=== PATIENT | female | born 1945 | race Caucasian/White ===

== ENCOUNTER → 2016-06-24 | Outpatient (CLI) | payer BC ==
[~2016-06-24] MED LIST: ACET-1256 PO; AZAT50TA17 PO; PRED10TA PO
--- NOTE | 2016-06-24 16:28 | DIAGNOSTIC IMAGING REPORT ---
RIGHT KNEE 4 OR MORE CLINICAL HISTORY: RIGHT KNEE PAIN/OSTEOARTHRITIS Right COMPARISON STUDY: Bilateral knees 11/07/2015. FINDINGS: AP weightbearing of the bilateral knees and lateral, tunnel, and sunrise views of the right knee were submitted. There is chondrocalcinosis within the right knee. Severe cartilage space narrowing at the lateral compartment with [id number] articulation and subchondral sclerosis. This is similar to the prior study. There are large tricompartmental osteophytes. The bones are osteopenic. No acute fracture or dislocation. Trace knee effusion. There is also severe cartilage space narrowing at the lateral compartment of the left knee and moderate cartilage space narrowing at the medial compartment. There is mild cartilage space narrowing at the medial compartment of the right knee IMPRESSION: Bilateral knee osteoarthritis most severe at the lateral compartments as described above. This is similar to the prior study. Chondrocalcinosis. Trace right knee effusion. Electronically signed by: Ernesto Barrera M.D. 06/24/2016 4:26 PM Dictated Date/Time: 06/24/2016 4:23 PM
== END | disposition home or self-care (01) ==
LOC: C.RDSM 15:41
PROVIDERS: ATTEND Physical Medicine & Rehabilitation Sports Medicine
DX: M17.0 Bilateral primary osteoarthritis of knee (principal); M11.261 Other chondrocalcinosis, right knee

== ENCOUNTER → 2017-01-26 | Outpatient (CLI) | payer BC ==
--- NOTE | 2017-01-26 10:06 | DIAGNOSTIC IMAGING REPORT ---
RIGHT WRIST 3 VIEWS CLINICAL HISTORY: Right wrist pain. Healing fracture. FINDINGS: 3 views of the right wrist are compared to study dated 11/27/2016. The skeletal structures are osteopenic. There is a healing impacted fracture of the distal radial metaphysis. Alignment has improved from the prior examination. Overlying soft tissue edema persists. No additional fracture is seen. Mild arthritic change is present at the radiocarpal and intercarpal joints. IMPRESSION: There is a healing impacted fracture of the distal radial metaphysis with persistent overlying soft tissue edema. Electronically signed by: Mook Diaz M.D. 01/26/2017 10:05 AM Dictated Date/Time: 01/26/2017 10:02 AM
--- NOTE | 2017-01-26 10:33 | DIAGNOSTIC IMAGING REPORT ---
RIGHT HAND MIN 3 VIEWS CLINICAL HISTORY: Right hand pain COMPARISON: Outside radiograph of the wrist dated 11/27/2016 DISCUSSION: The bones are osteopenic. There is a healing transverse fracture of the distal radial metaphysis with suspected intra-articular extension. No fractures of the hand are visualized. There are no dislocations. There are osteoarthritic changes most pronounced involving the distal to phalangeal joint. IMPRESSION: 1. Osteopenia and degenerative change 2. Healing distal radial fracture Electronically signed by: Leonid Genao M.D. 01/26/2017 10:31 AM Dictated Date/Time: 01/26/2017 10:30 AM
== END | disposition home or self-care (01) ==
LOC: C.RDSM 14:41
PROVIDERS: ATTEND Physician Assistant
DX: M25.531 Pain in right wrist (principal); M79.641 Pain in right hand; S52.591A Other fractures of lower end of right radius, initial encounter for closed fracture; X58.XXXA Exposure to other specified factors, initial encounter; M85.841 Other specified disorders of bone density and structure, right hand

== ENCOUNTER → 2017-02-11 | Outpatient (CLI) | payer BC ==
--- NOTE | 2017-02-11 11:48 | DIAGNOSTIC IMAGING REPORT ---
RIGHT WRIST MIN 3 VIEWS ROUTINE CLINICAL HISTORY: Right wrist pain. Healing fracture. COMPARISON: Right wrist radiographs January 26, 2017. FINDINGS: There has been no change in alignment of the mildly displaced impacted distal right radial metaphyseal fracture since exam of January 26, 2017. Partial interval healing is noted. No additional fractures are identified on this examination. IMPRESSION: Partial interval healing of the mildly displaced distal right radial fracture with no change in alignment since prior study of January 26, 2017. Electronically signed by: Mayito Foster M.D. 02/11/2017 11:47 AM Dictated Date/Time: 02/11/2017 11:45 AM
== END | disposition home or self-care (01) ==
LOC: C.RDSM 11:15
PROVIDERS: ATTEND Physician Assistant
DX: S52.591A Other fractures of lower end of right radius, initial encounter for closed fracture (principal); X58.XXXA Exposure to other specified factors, initial encounter

== ENCOUNTER 2017-03-03 18:10 | Emergency (ER) | payer BC ==
[~2017-03-03] VITALS: Ht 152.4 cm; Wt 53.7 kg
[~2017-03-03 18:10] MED LIST changes: -ACET-1256 PO
[2017-03-03 18:16] VITALS: TEMP 36.6; Ht 152.4 cm; Wt 53.7 kg
[2017-03-03] MEDS ORDERED: MoRPHine SULFATE 4 MG/ML 1 ML CARP\\VIAL IV STA (18:30)
[2017-03-03] MEDS ORDERED: ACETAMINOPHEN 325 MG TAB PO STA (18:30)
[2017-03-03] MEDS ORDERED: SODIUM CHLORIDE 0.9% 500ML 500 ML IV STA (18:30)
--- NOTE | 2017-03-03 18:54 | EMERGENCY ROOM VISIT NOTE ---
History Report prepared by Anton: Moisés Villa Under the Supervision of: Dr. Marco A Soria M.D. 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 She rates her discomfort as a 10/10 in severity. The patient states that she was carrying a box down the stairs and missed a step. She reports that she fell down six steps and hit the back of her head. The patient denies any LOC and reports that she remembers the whole thing. She states that following the fall she started to experience a headache, right upper back pain, and left wrist pain. The patient states that she is unsure if she takes blood thinners. She reports that she is right handed. The patient admits to an allergy to Penicillin and Ibuprofen. She reports that when she takes Ibuprofen, her face swells. Positive headache, right upper back pain, left wrist pain. Negative LOC. 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 A total of ten systems were reviewed and were otherwise negative. Past Medical & Surgical Medical Problems: (1) Aneurysm Family History Patient reports no known family medical history. Social History Smoking Status: Never Smoker Occupation Status: retired Current/Historical Medications Scheduled Azathioprine (Imuran), 50 MG PO DAILY Scheduled PRN Acetaminophen (Tylenol), 500-1,000 MG PO DIRECTED PRN for Pain or Fever Allergies Coded Allergies: Ibuprofen (Verified Allergy, Unknown, UNKNOWN, 03/03/17) Penicillins (Verified Allergy, Unknown, UNKNOWN, 03/03/17) Physical Exam Vital Signs Date Time Temp Pulse Resp B/P (MAP) Pulse Ox O2 Delivery O2 Flow Rate FiO2 03/03/17 21:39 98 22 135/87 98 03/03/17 20:57 104 22 144/75 98 Room Air 03/03/17 20:20 104 03/03/17 20:00 104 20 139/84 97 Room Air 03/03/17 19:20 106 20 136/83 97 Room Air 03/03/17 18:16 36.6 107 20 135/81 98 Room Air Physical Exam GENERAL: Awake, alert, well-appearing, NAD HENT: Laceration to occipital area, currently hemostatic. EYES: Normal conjunctiva. Sclera non-icteric. NECK: Supple. No nuchal rigidity. FROM. RESPIRATORY: CTAB, no rhonchi, wheezing, crackles CARDIAC: RRR, no MRG ABDOMEN: Soft, NTND, BS+ MSK: No chest wall TTP, no LE edema. No midline C-spine tenderness or paraspinal tenderness. Mild right scapular tenderness, no bruising. NEURO: GCS 15, CN 2-12 intact, moves all 4s on command neural sensation intact distally.no dysarthria. Symmetric strength in bilateral UE/LE. M/U/R nerves. SKIN: No rash or jaundice noted. Ecchymosis and hematoma noted to dorsal aspect of left wrist. Medical Decision & Procedures ER Provider Diagnostic Interpretation: Radiology results as stated below per my review and radiologist interpretation: HEAD WITHOUT CONTRAST (CT) CLINICAL HISTORY: 71 years-old Female presenting with s/p fall, occipital lac, down several stairs. TECHNIQUE: Multidetector CT imaging of the head was performed without the use of intravenous contrast. IV contrast: None. A dose lowering technique was used consistent with the principles of ALARA (as low as reasonably achievable). COMPARISON: 03/18/2015. CT DOSE (mGy.cm): The estimated cumulative dose is 931.08. FINDINGS: Phytopathology Teacher topogram: Aneurysm clip noted. Acute subarachnoid hemorrhage in the right sylvian fissure along the course of the right middle cerebral artery. Aneurysm clip noted in the region of the right internal carotid artery terminus. Hyperdensity along the right tentorium suggests subdural hematoma. Additional acute subdural hematoma along the right frontal convexity with mild underlying mass effect. This measures 7 mm in maximal thickness. Additional acute subarachnoid hemorrhage noted in the anterior pole of the left temporal lobe with small adjacent acute subdural hematoma. Hyperdense focus in the left basal ganglia likely age-related calcification. No parenchymal hypodensity to suggest contusion. Postsurgical changes of right frontal craniotomy. No acute calvarial fracture. Paranasal sinuses and mastoid air cells clear. The superficial soft tissues are remarkable for an acute subgaleal hematoma along the right vertex. Foci of gas likely suggest laceration in this region. IMPRESSION: 1. Acute subdural hematoma and acute subarachnoid hemorrhage along the right frontal region with mild subjacent mass effect. 2. Acute subdural hematoma and acute subarachnoid hemorrhage along the anterior pole of the left temporal lobe. 3. Acute subdural hematoma along the right tentorium. 4. Acute subgaleal hematoma along the right vertex likely with associated laceration. 5. Postsurgical changes with aneurysm clip in the region of the right ICA terminus, unchanged. The report will be called/faxed according to standard departmental protocol. Electronically signed by: Renzo Gage M.D. 03/03/2017 7:56 PM Dictated Date/Time: 03/03/2017 7:[address] OF THE CERVICAL SPINE CLINICAL HISTORY: Neck pain status post trauma. Fall down stairs. COMPARISON STUDY: No previous studies for comparison. CT DOSE: 931.08 mGy.cm TECHNIQUE: CT scan of the cervical spine was performed from the skull base to the thoracic inlet. Images are reviewed in the axial, sagittal, and coronal planes. IV contrast was not administered for this examination. A dose lowering technique was utilized adhering to the principles of ALARA. FINDINGS: There is a multinodular thyroid gland including a 13 mm right lobe thyroid nodule. No pneumothorax is visualized. The prevertebral soft tissues are normal. No fractures or subluxations are visualized. There is mild basilar invagination. 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 IMPRESSION: 1. No acute fractures or traumatic subluxations 2. Mild basilar invagination 3. Multinodular thyroid gland. Electronically signed by: Leonid Genao M.D. 03/03/2017 8:00 PM Dictated Date/Time: 03/03/2017 7:54 PM Laboratory Results 03/03/17 19:06 Red Blood Count 4.71, Mean Corpuscular Volume 84.1, Mean Corpuscular Hemoglobin 28.5, Mean Corpuscular Hemoglobin Concent 33.8, Mean Platelet Volume 10.0, Neutrophils (%) (Auto) 76.5, Lymphocytes (%) (Auto) 13.5, Monocytes (%) (Auto) 7.2, Eosinophils (%) (Auto) 2.2, Basophils (%) (Auto) 0.2, Neutrophils # (Auto) 9.21, Lymphocytes # (Auto) 1.62, Monocytes # (Auto) 0.87, Eosinophils # (Auto) 0.27, Basophils # (Auto) 0.02 03/03/17 19:06 Test 03/03/17 19:06 White Blood Count 12.04 K/uL (4.8-10.8) Red Blood Count 4.71 M/uL (4.2-5.4) Hemoglobin 13.4 g/dL (12.0-16.0) Hematocrit 39.6 % (37-47) Mean Corpuscular Volume 84.1 fL (80-100) Mean Corpuscular Hemoglobin 28.5 pg (25-34) Mean Corpuscular Hemoglobin Concent 33.8 g/dl (32-36) Platelet Count 222 K/uL (130-400) Mean Platelet Volume 10.0 fL (7.4-10.4) Neutrophils (%) (Auto) 76.5 % Lymphocytes (%) (Auto) 13.5 % Monocytes (%) (Auto) 7.2 % Eosinophils (%) (Auto) 2.2 % Basophils (%) (Auto) 0.2 % Neutrophils # (Auto) 9.21 K/uL (1.4-6.5) Lymphocytes # (Auto) 1.62 K/uL (1.2-3.4) Monocytes # (Auto) 0.87 K/uL (0.11-0.59) Eosinophils # (Auto) 0.27 K/uL (0-0.5) Basophils # (Auto) 0.02 K/uL (0-0.2) RDW Standard Deviation 43.6 fL (36.4-46.3) RDW Coefficient of Variation 14.0 % (11.5-14.5) Immature Granulocyte % (Auto) 0.4 % Immature Granulocyte # (Auto) 0.05 K/uL (0.00-0.02) Prothrombin Time 11.5 SECONDS (9.0-12.0) Prothromb Time International Ratio 1.1 (0.9-1.1) Activated Partial Thromboplast Time 23.4 SECONDS (21.0-31.0) Partial Thromboplastin Ratio 0.9 Anion Gap 8.0 mmol/L (3-11) Est Creatinine Clear Calc Drug Dose 51.4 ml/min Estimated GFR () 99.6 Estimated GFR (Non- 86.0 BUN/Creatinine Ratio 34.8 (10-20) Calcium Level 9.0 mg/dl (8.5-10.1) Laboratory results reviewed by me Medications Administered Medications (Trade) Dose Ordered Sig/Jag Route Start Time Stop Time Status Last Admin Dose Admin Sodium Chloride 500 ml @ 500 mls/hr Q1H STAT IV 03/03/17 18:30 03/03/17 19:29 DC 03/03/17 19:16 500 MLS/HR Morphine Sulfate (MoRPHine SULFATE INJ) 4 mg NOW STAT IV 03/03/17 18:30 03/03/17 18:33 DC 03/03/17 19:15 4 MG Acetaminophen (Tylenol Tab) 650 mg NOW STAT PO 03/03/17 18:30 03/03/17 18:33 DC 03/03/17 19:15 650 MG Diphtheria/ Pertussis/Tetanus Vacc (Adacel Inj) 0.5 ml ONCE ONCE IM. 03/03/17 19:00 03/03/17 19:01 DC 03/03/17 19:16 0.5 ML Levetiracetam 1000 mg/Dextrose 110 ml @ 440 mls/hr ONE ONCE IV 03/03/17 20:15 03/03/17 20:29 DC 03/03/17 20:57 440 MLS/HR Ondansetron HCl (Zofran Inj) 4 mg NOW STAT IV 03/03/17 20:13 03/03/17 20:14 DC 03/03/17 20:13 4 MG Ondansetron HCl (Zofran Inj) 4 mg NOW STAT IV 03/03/17 21:22 03/03/17 21:23 DC 03/03/17 21:22 4 MG ECG Indication: other (fall) Rate (beats per minute): 104 Rhythm: sinus tachycardia Findings: Q waves (Anterior in V1 and V2), other (Normal intervals. No other ST changes or TWI.) ED Course 1823: The patient was evaluated in room C12B. A complete history and physical exam was performed. 2025: I discussed the patient's case with Dr. Rodríguez, [facility] , and Dr. Hitchcock, [facility]. They understand the patient's condition and agree to accept the patient. The patient will be further evaluated. Medical Decision The differential diagnosis includes etiologies such as: ICH, sprain,strain laceration, and fracture. 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 Patient was seen and evaluated at the bedside. Patient was noted to be 18 or 3 with a GCS of 15. Patient suffered a mechanical fall and did have a posterior occipital laceration. Patient had no neurologic deficits pupils are equally round and reactive to light. Patient was further evaluated with blood work EKG CT as well as plain films. Patient was noted to have multiple subdural and subarachnoid hemorrhages. CT cervical spine negative. Patient did not take any blood thinning medications. Patient had normal platelets and hemoglobin. Patient was not coagulopathic. Upon reassessment patient was having some vomiting and was complaining of some headache but did not have a change in her GCS which remained to be 15. Patient was mildly repetitive questioning occasionally as she was trying to understand why she would have to be transferred. Patient was given Keppra for seizure prophylaxis. Head of the bed was elevated. Patient did not have an elevated systolic greater than 140s and no antihypertensives were initiated at time of transfer. I did speak with neurosurgery as well as emergency medicine physicians at [facility]. They agreed to accept transfer. Life flight arrived and the patient was transferred. Medication Reconcilliation Current Medication List: was personally reviewed by me Blood Pressure Screening Patient's blood pressure: Elevated blood pressure Blood pressure disposition: Referred to PCP Consults Time Called: 2025 Consulting Physician: Dr. Rodríguez, [facility], and Dr. Hitchcock [facility] Returned Call: 2025 I discussed the patient's case with Dr. Rodríguez, [facility], and Dr. Hitchcock, [facility]. They understand the patient's condition and agree to accept the patient. The patient will be further evaluated. Impression Primary Impression: Subdural bleeding Additional Impressions: Subarachnoid hemorrhage Fall Laceration of occipital region of scalp Critical Care I have personally spent greater than 52 minutes of critical care time in the direct management of this patient. This includes bedside care, interpretation of diagnostic studies, and testing, discussion with consultants, patient, and family members, and other required patient management activities. This 52 minutes is in excess of all separately billable procedures. Scribe Attestation The scribe's documentation has been prepared under my direction and personally reviewed by me in its entirety. I confirm that the note above accurately reflects all work, treatment, procedures, and medical decision making performed by me. Departure Information Dispostion Transfer Acute Care Facility Referrals No Doctor, Assigned (PCP) Patient Instructions My [facility] Problem Qualifiers Additional Impressions: Fall Encounter type: initial encounter Qualified Codes: W19.XXXA - Unspecified fall, initial encounter
[2017-03-03] MEDS ORDERED: DIPHTHERIA/TETANUS/PERTUSSIS 0.5 ML SYR/VIAL IM. ONE (19:00)
[2017-03-03 19:19] LABS: BASO % 0.2 %; BASO ABS # 0.02 K/uL (0-0.2); COMPLETE YES; EOS % 2.2 %; HEMATOCRIT 39.6 % (37-47); IG% 0.4 %; LYMPH % 13.5 %; LYMPH ABS # 1.62 K/uL (1.2-3.4); MEAN CELL VOLUME 84.1 fL (80-100); MEAN CORPUSCULAR HEMOGLOBIN 28.5 pg (25-34); MEAN CORPUSCULAR HGB CONC 33.8 g/dl (32-36); MONO % 7.2 %; NEUT % 76.5 %; PLATELET COUNT 222 K/uL (130-400); RED BLOOD COUNT 4.71 M/uL (4.2-5.4); WHITE BLOOD COUNT 12.04 K/uL (4.8-10.8)
[2017-03-03] MEDS ORDERED: ACET-1256 PO (19:27)
[2017-03-03 19:30] LABS: INR 1.1 (0.9-1.1); PARTIAL THROMBOPLASTIN RATIO 0.9; PROTHROMBIN TIME (PATIENT) 11.5 SECONDS (9.0-12.0)
[2017-03-03 19:38] LABS: BUN/CREATININE RATIO 34.8 (10-20); CREATININE 0.7 mg/dl (0.60-1.20)
--- NOTE | 2017-03-03 19:58 | DIAGNOSTIC IMAGING REPORT ---
HEAD WITHOUT CONTRAST (CT) CLINICAL HISTORY: 71 years-old Female presenting with s/p fall, occipital lac, down several stairs. TECHNIQUE: Multidetector CT imaging of the head was performed without the use of intravenous contrast. IV contrast: None. A dose lowering technique was used consistent with the principles of ALARA (as low as reasonably achievable). COMPARISON: 03/18/2015. CT DOSE (mGy.cm): The estimated cumulative dose is 931.08. FINDINGS: Rn Perioperative topogram: Aneurysm clip noted. Acute subarachnoid hemorrhage in the right sylvian fissure along the course of the right middle cerebral artery. Aneurysm clip noted in the region of the right internal carotid artery terminus. Hyperdensity along the right tentorium suggests subdural hematoma. Additional acute subdural hematoma along the right frontal convexity with mild underlying mass effect. This measures 7 mm in maximal thickness. Additional acute subarachnoid hemorrhage noted in the anterior pole of the left temporal lobe with small adjacent acute subdural hematoma. Hyperdense focus in the left basal ganglia likely age-related calcification. No parenchymal hypodensity to suggest contusion. Postsurgical changes of right frontal craniotomy. No acute calvarial fracture. Paranasal sinuses and mastoid air cells clear. The superficial soft tissues are remarkable for an acute subgaleal hematoma along the right vertex. Foci of gas likely suggest laceration in this region. IMPRESSION: 1. Acute subdural hematoma and acute subarachnoid hemorrhage along the right frontal region with mild subjacent mass effect. 2. Acute subdural hematoma and acute subarachnoid hemorrhage along the anterior pole of the left temporal lobe. 3. Acute subdural hematoma along the right tentorium. 4. Acute subgaleal hematoma along the right vertex likely with associated laceration. 5. Postsurgical changes with aneurysm clip in the region of the right ICA terminus, unchanged. The report will be called/faxed according to standard departmental protocol. Electronically signed by: Renzo Gage M.D. 03/03/2017 7:56 PM Dictated Date/Time: 03/03/2017 7:50 PM
--- NOTE | 2017-03-03 20:02 | DIAGNOSTIC IMAGING REPORT ---
CT OF THE CERVICAL SPINE CLINICAL HISTORY: Neck pain status post trauma. Fall down stairs. COMPARISON STUDY: No previous studies for comparison. CT DOSE: 931.08 mGy.cm TECHNIQUE: CT scan of the cervical spine was performed from the skull base to the thoracic inlet. Images are reviewed in the axial, sagittal, and coronal planes. IV contrast was not administered for this examination. A dose lowering technique was utilized adhering to the principles of ALARA. FINDINGS: There is a multinodular thyroid gland including a 13 mm right lobe thyroid nodule. No pneumothorax is visualized. The prevertebral soft tissues are normal. No fractures or subluxations are visualized. There is mild basilar invagination. 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 IMPRESSION: 1. No acute fractures or traumatic subluxations 2. Mild basilar invagination 3. Multinodular thyroid gland. Electronically signed by: Leonid Genao M.D. 03/03/2017 8:00 PM Dictated Date/Time: 03/03/2017 7:54 PM
[2017-03-03] MEDS ORDERED: ONDANSETRON INJ 2 MG/ML 2 ML VIAL IV STA ×2 (20:13→21:22)
[2017-03-03] MEDS ORDERED: LEVETIRACETAM IV 1,000 MG in DEXTROSE 5% 100ML 100 ML IV ONE (20:15)
[2017-03-03] MEDS ORDERED: LIDO/EPINEPHRINE/SOD BICARB 20 ML VIAL INFIL ONE (20:41)
--- NOTE | 2017-03-03 21:06 | EMERGENCY ROOM VISIT NOTE ---
ED Visit Note I was asked by Dr. Soria to repair a scalp laceration. There was a 3 cm slightly macerated and stellate laceration to the posterior scalp. There is moderate bleeding. Using sterile technique the wound was cleaned with Betadine. The area was sterilely draped. 5 ml of 1% buffered lidocaine with epinephrine was used to anesthetize the skin. Once the patient was numb, the wound was copiously irrigated under pressure with sterile saline. The wound was explored and there were no deep structures such as tendons, bone, or ligaments present. The laceration was repaired using 10 wendy with the wound edges being well approximated. There was a small area of maceration that may not hold a staple but the wound edges were approximated and the bleeding stopped. The patient tolerated the procedure well. The bleeding stopped. The area was cleaned with sterile saline and dressed with bacitracin ointment and bandage.
--- NOTE | 2017-03-03 21:26 | DIAGNOSTIC IMAGING REPORT ---
CHEST ONE VIEW PORTABLE CLINICAL HISTORY: 71 years-old Female presenting with R posterior/scap TTP. TECHNIQUE: Portable upright AP view of the chest was obtained. COMPARISON: None. FINDINGS: Cardiomediastinal silhouette normal. Lungs and pleural spaces clear. Osseous structures normal. Upper abdomen normal. IMPRESSION: 1. No acute cardiopulmonary disease. Electronically signed by: Renzo Gage M.D. 03/03/2017 9:25 PM Dictated Date/Time: 03/03/2017 9:24 PM
--- NOTE | 2017-03-03 21:29 | DIAGNOSTIC IMAGING REPORT ---
R SCAPULA CLINICAL HISTORY: 71 years-old Female presenting with scalp TTP. TECHNIQUE: Frontal and lateral views of the right scapula were obtained. COMPARISON: Correlation made to plain radiographs of the left shoulder from 11/16/2011. FINDINGS: Apparent calcific density projecting over the humeral head on frontal view may represent calcific tendinitis. Glenohumeral and acromioclavicular joints grossly congruent. No displaced fracture of the scapula is apparent. Regional soft tissues within normal limits. Right hemithorax normal. IMPRESSION: No radiographic evidence of acute osseous injury of the right scapula. Electronically signed by: Renzo Gage M.D. 03/03/2017 9:28 PM Dictated Date/Time: 03/03/2017 9:25 PM
--- NOTE | 2017-03-03 21:32 | DIAGNOSTIC IMAGING REPORT ---
L WRIST 2 VIEW CLINICAL HISTORY: 71 years-old Female presenting with pain/hematoma/ecchymosis. TECHNIQUE: Frontal, bilateral oblique, and lateral views of the left wrist were obtained. COMPARISON: Comparison made to plain radiographs of the right wrist from 2013. FINDINGS: Osteopenia. Osteophytosis, joint space loss, and sclerosis at the first carpometacarpal articulation. Surrounding ossific densities may relate to heterotopic ossification or fragmented osteophytes. Radiocarpal and intercarpal articulations grossly intact. Allowing for osteopenia, no displaced fracture. No malalignment. IMPRESSION: Extensive degenerative change at the first carpometacarpal articulation with exuberant osteophytosis or heterotopic ossification. No acute osseous injury. Electronically signed by: Renzo Gage M.D. 03/03/2017 9:30 PM Dictated Date/Time: 03/03/2017 9:28 PM
--- NOTE | 2017-03-03 21:38 | DIAGNOSTIC IMAGING REPORT ---
L FOREARM 2 VIEWS ROUTINE CLINICAL HISTORY: 71 years-old Female presenting with pain/hematoma/ecchymosis. TECHNIQUE: Frontal and lateral views of the left forearm were obtained. COMPARISON: None. FINDINGS: Elbow and distal radial ulnar joints grossly congruent. No acute fracture or malalignment. Partially visualized degenerative change at the first carpometacarpal articulation. Regional soft tissues within normal limits. IMPRESSION: No acute osseous injury of the left forearm. Electronically signed by: Renzo Gage M.D. 03/03/2017 9:37 PM Dictated Date/Time: 03/03/2017 9:35 PM
[2017-03-03 21:39] VITALS: BP 135/87; PULSE 98; O2SAT 98
== END 2017-03-03 21:39 | disposition short-term general hospital (02) ==
LOC: EDBD 18:10 → C.EDC 18:11
DX: I62.00 Nontraumatic subdural hemorrhage, unspecified (principal); S06.6X0A Traumatic subarachnoid hemorrhage without loss of consciousness, initial encounter; W10.9XXA Fall (on) (from) unspecified stairs and steps, initial encounter; S01.01XA Laceration without foreign body of scalp, initial encounter; I72.9 Aneurysm of unspecified site; Z23 Encounter for immunization

== ENCOUNTER → 2017-07-07 | Outpatient (CLI) | payer BC ==
[~2017-07-07] MED LIST changes: +ACET-1256 PO; -PRED10TA PO
--- NOTE | 2017-07-07 13:19 | DIAGNOSTIC IMAGING REPORT ---
HEAD WITHOUT CONTRAST (CT) CT DOSE: 709.48 mGy.cm HISTORY: I60.9 Subarachnoid bleed TECHNIQUE: Multiaxial CT images of the head were performed without the use of intravenous contrast. A dose lowering technique was utilized adhering to the principles of ALARA. Comparison: 03/03/2017 Findings: The paranasal sinuses and mastoid air cells are clear. Patient's right-sided craniotomy flap remains stable. The subarachnoid as well as subdural hemorrhage along the right frontal region present described appears to resolve completely. The subdural hematoma along the left anterior temporal lobe region previously described has also resolved. There is perhaps a small amount of post lead encephalomalacia. Postoperative changes in the right suprasellar region are again noted consistent with aneurysm clips. These are unchanged from the prior study. Scattered areas of atrophy as well as chronic small vessel change are noted. All findings are present slightly progressive compared to the prior exam although the hemorrhagic component again has resolved. Impression: 1. No evidence for acute intracranial hemorrhage. 2. All regions of hemorrhage previously described have completely resolved. 3. Slightly progressive atrophy as well as scattered encephalomalacia compared to the prior exam. 4. Stable chronic small vessel change throughout both cerebral hemispheres. The above report was generated using voice recognition software. It may contain grammatical, syntax or spelling errors. Electronically signed by: Nile Bermeo M.D. 07/07/2017 1:17 PM Dictated Date/Time: 07/07/2017 1:13 PM
== END | disposition home or self-care (01) ==
LOC: C.CTS 12:36
PROVIDERS: ATTEND Nurse Practitioner Family
DX: I60.9 Nontraumatic subarachnoid hemorrhage, unspecified (principal)

== ENCOUNTER 2019-12-12 08:01 | Observation (INO) ==
--- NOTE | 2019-11-22 16:16 | PAT Medication Instructions ---
Medication Instructions Date of Service November 22, 2019 Home Medications azathioprine [Imuran] 12.5 mg PO QAM conj estrog-medroxyprogest jaya [Prempro] 0.5 tab PO QAM Take morning of surgery With a small sip of water, OTHERWISE NOTHING TO EAT OR DRINK AFTER MIDNIGHT: azathioprine [Imuran] 12.5 mg PO QAM conj estrog-medroxyprogest jaya [Prempro] 0.5 tab PO QAM Other Notes If you have any questions please call us at [phone] or [phone] or [phone] or [phone]
--- NOTE | 2019-11-22 16:25 | Anesthesiology Consultation ---
Date of Service November 22, 2019 Assessment & Plan (1) Encounter for pre-operative examination: COVID Status: As of PAT assessment, patient denies travel to endemic area, known exposure/sick contacts, or symptoms of COVID19. Preoperative COVID19 testing to be completed prior to surgery. CXR not completed at PAT. Apparently patient waited for > 20 mins at radiology, and when the tech came to get her she had left. Surgeon's office made aware. CXR not needed from anesthesia standpoint. If they do want the CXR they will arrange for patient to come back, and if not will send new order with no CXR. Chart Review Chart Review: Acceptable Risk for Surgery (pending surgeon-ordered PCP clearance (Bruce Ospina) 11/25) and Patient seen in Pre Admission Testing Teaching & Discussion Instructed NPO after midnight before surgery, except medications with 15 cc of water. Medication instructions provided according to the [facility] guidelines. History Surgery Operation Date: 12/12/19 09:20 Proposed Procedures p Right Total Knee Arthroplasty - Geovany Chandler MD Height/Weight Height: 5 ft 1 in Weight: 51.982 kg Allergies Allergy/AdvReac Type Severity Reaction Status Date / Time Penicillins Allergy Severe Anaphylaxis Verified 11/22/19 15:45 ibuprofen Allergy Intermediate SWELLING Verified 11/22/19 15:45 IN FACE tramadol Allergy Mild VOMITTING Verified 11/22/19 15:45 prednisone Allergy Unknown unk Verified 11/22/19 15:45 Opioids - Morphine Analogues AdvReac Intermediate severe n/v Verified 11/22/19 15:45 Medications Home Medications Medication Instructions Recorded Confirmed Last Taken azathioprine [Imuran] 12.5 mg PO QAM 11/16/19 11/22/19 Unknown conj estrog-medroxyprogest jaya 0.5 tab PO QAM 11/16/19 11/22/19 Unknown [Prempro] Past Medical History Medical History Anemia hx r/t autoimmune hepatitis Anxiety well controlled and situational Autoimmune hepatitis ~2012 Dr. Antoine Rowe Brain bleed sent from [facility] to [place] ~2016. no problems currently Hx of aneurysm BRAIN ANEURYSM OVER 30 YEARS AGO, S/P SURGICAL INTERVENTION IN [place] Exercise / Class Metabolic Activity II 4-5 Yardwork/Stairs/Walk up hill Past Family History Family History Sister Colorectal cancer Mother Myocardial infarction Other No family history of adverse response to anesthesia Denies family history of Ovarian cancer Prostate cancer Breast cancer Past Surgical History Surgical History History of 3 sections History of breast biopsy History of colonoscopy History of dilation and curettage History of esophagogastroduodenoscopy pt denies History of liver biopsy ~2012 S/P brain surgery intracranial aneurysm repair with a clip in [place] (1983) S/P wisdom tooth extraction Past Anesthesia History No Hx of Anesthesia Complications and No Family Hx of Anesthesia Complications History of PONV No Hx of PONV and No Hx of Motion Sickness Social History Smoking Status: Never smoker Do You Dip or Chew Tobacco: No Hx Alcohol Use: No Hx Substance Use: No substance use type: does not use Review of Systems Pt denies any recent chest pain, shortness of breath, palpitations, cough, fever or URI. Physical Exam Vital Signs Last Vital Signs Temp 36.8 C 11/22/19 16:00 Pulse 77 11/22/19 16:00 Resp 18 11/22/19 16:00 BP 131/56 L 11/22/19 16:00 Pulse Ox 98 11/22/19 16:00 ENMT Mouth: + dentures (upper partial) and + dental restorations (caps on two bottom tooth); no chipped teeth and no loose teeth Thyromental Distance: > or= 3.5 Finger Breadths (3.5) Mallampati Class: I Neck normal visual inspection; neck extension not limited Respiratory normal respiratory effort Auscultation: lungs clear to auscultation bilaterally Cardiovascular Rate/Rhythm: regular rate and regular rhythm Heart Sounds: no murmur Extremities: no edema Testing Laboratory Results 11/22/19 16:05 11/22/19 16:05 PT 11.6 Seconds (9.0-12.0) 11/22/19 16:05 INR 1.1 (0.9-1.1) 11/22/19 16:05 APTT 27.2 Seconds (21.0-31.0) 11/22/19 16:05 Urine Color Yellow 11/22/19 Unknown Urine Appearance Clear (Clear) 11/22/19 Unknown Urine pH 6.5 (4.5-7.5) 11/22/19 Unknown Ur Specific [place] 1.021 (1.000-1.030) 11/22/19 Unknown Urine Protein Negative (Negative) 11/22/19 Unknown Urine Glucose (UA) Negative (Negative) 11/22/19 Unknown Urine Ketones Negative (Negative) 11/22/19 Unknown Urine Nitrite Positive (Negative) A 11/22/19 Unknown Ur Leukocyte Esterase 1+ (Negative) H 11/22/19 Unknown Urine WBC (Auto) 10-30 /hpf (0-5) H 11/22/19 Unknown Urine RBC (Auto) 0-4 /hpf (0-4) 11/22/19 Unknown U Hyaline Cast (Auto) 0 /lpf (0-5) 11/22/19 Unknown U Epithel Cells (Auto) 10-20 /lpf (0-5) H 11/22/19 Unknown Urine Bacteria (Auto) 4+ (Negative) H 11/22/19 Unknown Blood Type O Positive 11/22/19 16:05 Antibody Screen NEGATIVE 11/22/19 16:05 surgeon's office flagged re: + UA Electrocardiogram Date: 11/22/19 SR @ 75bpm with occasional PVCs, otherwise normal EKG.
[2019-11-22 16:29] LABS: Basophils # (auto) 0.02 K/uL (0-0.2); Basophils % (auto) 0.2 %; Eosinophils % (auto) 2.4 %; Hematocrit (blood only) 43.3 % (37-47); Hemoglobin 14.3 g/dL (12.0-16.0); Immature Granulocytes # (auto) 0.02 K/uL (0.00-0.02); Immature Granulocytes % (auto) 0.2 %; Lymphocytes # (auto) 1.82 K/uL (1.2-3.4); Lymphocytes % (auto) 21.6 %; Mean Corpuscular Hemoglobin 28.4 pg (25-34); Mean Corpuscular Volume 85.9 fL (80-100); Mean Platelet Volume 10.9 fL (7.4-10.4); Monocytes # (auto) 0.61 K/uL (0.11-0.59); Monocytes % (auto) 7.2 %; Neutrophils # (auto) 5.75 K/uL (1.4-6.5); Neutrophils % (auto) 68.4 %; Platelet Count 244 K/uL (130-400); RDW Coefficient of Variation 15.4 % (11.5-14.5); RDW Standard Deviation 48.9 fL (36.4-46.3); Red Blood Count 5.04 M/uL (4.2-5.4); White Blood Count 8.42 K/uL (4.8-10.8)
[2019-11-22 16:35] LABS: Appearance Urine Clear (Clear); Bacteria Urine Automated 4+ (Negative); Bilirubin Urine Negative (Negative); Blood Urine Trace (Negative); Cast Urine Automated 0 /lpf (0-5); Color Urine Yellow; Glucose Urine UA Negative (Negative); Ketones Urine Negative (Negative); Leukocyte Esterase Urine 1+ (Negative); Nitrite Urine Positive (Negative); Protein Urine Negative (Negative); RBC Urine Automated 0-4 /hpf (0-4); Specific Gravity Urine 1.021 (1.000-1.030); Urobilinogen Urine Negative (Negative); pH Urine 6.5 (4.5-7.5)
[2019-11-22 16:36] LABS: BUN Creatinine Ratio 29.4 (10-20); Calcium 9.3 mg/dl (8.5-10.1); Creatinine Clr Calc Pharmacy 57.3 ml/min; Est GFR (Non-African American) 87.1
[2019-11-22 16:39] LABS: INR 1.1 (0.9-1.1); Partial Thromboplastin Time 27.2 Seconds (21.0-31.0); Prothrombin Time 11.6 Seconds (9.0-12.0)
--- NOTE | 2019-11-22 23:39 | Electrocardiogram Report ---
Test Reason : Blood Pressure : / mmHG Vent. Rate : 075 BPM Atrial Rate : 075 BPM P-R Int : 162 ms QRS Dur : 086 ms QT Int : 414 ms P-R-T Axes : 075 -09 063 degrees QTc Int : 462 ms Sinus rhythm with occasional Premature ventricular complexes Otherwise normal ECG When compared with ECG of 03-MAR-2017 18:59, Premature ventricular complexes are now Present Confirmed by Cristian Carrera ([id number]) on 11/22/2019 11:39:59 PM Referred By: Geovany Chandler Confirmed By:Cristian Carrera
--- NOTE | 2019-12-07 17:49 | History & Physical Report ---
Date of Service December 07, 2019 Assessment & Plan (1) Right knee DJD: Postoperative prescriptions for Percocet and Coumadin will be provided at discharge from the hospital. Anticipate discharge to home with home health services. She will have her son from [place] come and stay with her. Preoperative lab work, EKG, and chest x-ray have been ordered. Medical clearance has been requested from her PCP, Bruce Ospina. Prescription was provided for a rolling walker. Followup appointment has been made for 12/27/2019 at 1:30. The patient is aware of the COVID-19 risks associated with surgery. She is currently asymptomatic of any COVID-19 symptoms. She will have COVID-19 nasal swab testing obtained prior to surgery. History of Present Illness Chief Complaint: Right knee pain Primary Care Provider: Bruce Ospina, KERWIN, YNAELIS This 74-year-old female is scheduled to undergo a right knee total knee arthroplasty on 12/12/2019. The patient has had a longstanding history of right knee pain. Symptoms have been ongoing for over 8 years. She has tried to avoid total knee replacements, but cannot take the pain any longer. She is having exquisite discomfort with any activities of daily living. Pain is worse with weightbearing and ambulation. She is walking with a cane. She has tried viscosupplementation as well as cortisone injections and activity modification without lasting improvement. Occasional effusions. There was a history of previous left knee patellar fracture and left tibia fracture. She denies any numbness or tingling. Extensive imaging has been obtained. She elects to proceed with surgical intervention in hopes of improving her mobility and comfort. Allergies Allergy/AdvReac Type Severity Reaction Status Date / Time Penicillins Allergy Severe Anaphylaxis Verified 12/05/19 10:50 ibuprofen Allergy Intermediate SWELLING Verified 12/05/19 10:50 IN FACE tramadol Allergy Mild VOMITTING Verified 12/05/19 10:50 prednisone Allergy Unknown unk Verified 12/05/19 10:50 Opioids - Morphine Analogues AdvReac Intermediate severe n/v Verified 12/05/19 10:50 Home Medications Home Medications Medication Instructions Recorded Confirmed Type azathioprine [Imuran] 12.5 mg PO QAM 11/16/19 12/05/19 History conj estrog-medroxyprogest jaya 0.5 tab PO QAM 11/16/19 12/05/19 History [Prempro] Past Med/Surg History Medical History Anemia hx r/t autoimmune hepatitis Anxiety well controlled and situational Autoimmune hepatitis ~2012 Dr. Antoine Rowe Brain bleed sent from [facility] to [place] ~2016. no problems currently Hx of aneurysm BRAIN ANEURYSM OVER 30 YEARS AGO, S/P SURGICAL INTERVENTION IN [facility] Surgical History History of 3 sections History of breast biopsy History of colonoscopy History of dilation and curettage History of esophagogastroduodenoscopy pt denies History of liver biopsy ~2012 S/P brain surgery intracranial aneurysm repair with a clip in [facility] (1983) S/P wisdom tooth extraction Family History Sister Colorectal cancer Mother Myocardial infarction Other No family history of adverse response to anesthesia Denies family history of Ovarian cancer Prostate cancer Breast cancer Social History Preferred Language: Chilean Communication Ability: Effective Visual Impairment: No Limitations Hearing Ability: Use of Hearing Aid Technician Inventory Specialist Required: No Beliefs That Will Affect Care: Jain Jain Beliefs: zoroastrianism marital status: / Current Living Situation: Alone current occupational status: retired Feels Safe at Home: Yes Smoking Status: Never smoker Second Hand Exposure: No ; Hx Alcohol Use: No Hx Substance Use: No Childhood Exposure to Second-Hand Smoke: No Dental Care, Regularly: Yes Physical Activity Frequency: Daily Seatbelt Use: sometimes Sunscreen Use: No Do you think of yourself as: straight/heterosexual Review of Systems Review of Systems: All systems reviewed & are unremarkable except as noted in HPI & below Physical Exam Physical Exam: Vitals: Height 151 cm, weight 52.1 kilograms, BMI 22.8, temperature 36.5 oral, BP 102/56, pulse is 93, O2 sat 100% on room air. General: Well-developed, well-nourished, elderly female in no acute distress. Sitting in a chair. Alert and oriented. Skin: Warm and dry with fair turgor. No rashes or lesions. No ecchymosis or erythema. HEENT: Normocephalic, atraumatic. Eyes: PERRLA, EOMI. Nares patent bilatera lly without turbinate enlargement. Oropharynx without erythema or exudate. Fair dentition. She does have dental implants. 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 Heart: RRR, no MGR. Lungs: Clear to auscultation bilaterally, no crackles, rhonchi or wheezing, good air movement. Abdomen: Bowel sounds present x4, soft, nontender. No organomegaly. No masses. Musculoskeletal: Right knee evaluation reveals a mild intraarticular effusion. Significant valgus positioning of her knee. There is focal discomfort with palpation over the medial and lateral joint lines. She lacks approximately 5 degrees of terminal extension. Flexion to greater than 90 degrees. Strength is 5/5 with fair quad tone. Stable collateral ligaments, though there is some pseudolaxity. No deficit in the patellar tendon or quadriceps tendon. Ambulates with a significant antalgic gait using her cane. Intact motor function of the ankle. Neurologic: Gross sensation is intact across both lower extremities by soft touch. Peripheral pulses are 2+. Results & Data Results & Data ([facility]) Diagnostic Findings Radiographic imaging obtained today shows significant end-stage DJD with significant valgus deformity. Periarticular osteophytes, subchondral sclerosis, and joint space narrowing, and loose bodies are all noted.
[~2019-12-12 08:01] MED LIST changes: -ACET-1256 PO; -AZAT50TA17 PO; +BUPIVACAINE 0.5 % 5 MG/1 ML PF 10ML VIAL ONE; +EPINEPHrine INJ 1 MG/ML AMP ONE; +LR 500ML BOLUS, THEN 15ML/HR IV SCH; +LR 60ML/HR IV SCH; +ROPIVACAINE 0.5% 5 MG/ML 30 ML VIAL ONE; +ROPIVACAINE 0.5% HCL/PF 150 MG, BUPIVACAINE 0.5% MPF 30 ML, EPINEPHrine 0.15 MG, Ketoro... INFIL SCH; +TRANEXAMIC ACID 1,000 MG **IV Pre-op IV SCH; +VANCOMYCIN HCL 750 MG in SODIUM CHLORIDE 0.9% 250 ML IV SCH
[2019-12-12] MEDS ORDERED: MIDAZOLAM HCL 1 MG/ML 2ML VIAL ONE (09:14)
[2019-12-12] MEDS ORDERED: LIDOCAINE HCL 2% 2 ML VIAL/AMP(20MG/ML) INFIL ONE (09:14)
[2019-12-12] MEDS ORDERED: PROPOFOL IV EMULSION 10 MG/ML 20 ML VIAL IV ONE ×2 (09:14→11:10)
[2019-12-12] MEDS ORDERED: fentaNYL citrate 100 MCG/2 ML VIAL ONE (09:15)
--- NOTE | 2019-12-12 10:43 | History & Physical Bridge Note ---
Date of Service December 12, 2019 History & Physical Bridge Note I have examined the patient, reviewed the History & Physical and in the interval since the performance of the History & Physical I have noted the following changes of clinical significance:consent obtained/site marked/covid screen negative. no changes noted
[2019-12-12] MEDS ORDERED: ORTHO JOINT ANESTHETIC ONE (10:46)
[2019-12-12] MEDS ORDERED: PHENYLEPHRINE 100MCG/ML 5ML SYR ONE (11:21)
[2019-12-12] MEDS ORDERED: ATROPINE SULFATE 0.1 MG/ML 10ML SYR IV PRN (11:22)
[2019-12-12] MEDS ORDERED: ePHEDrine sulfate 50 MG/ML AMP IV PRN (11:22)
--- NOTE | 2019-12-12 12:38 | Post Operative Brief Note ---
Immediate Post Op Note v1 Date of Surgery December 12, 2019 Pre & Post Diagnosis Operation Date: 12/12/19 10:40 Pre-Op Diagnosis: Right Knee Degenerative Joint Disease Post-Op Diagnosis: Right Knee Degenerative Joint Disease I identified the patient and participated in the time-out.: Yes Procedure Operation Date: 12/12/19 10:40 Actual Procedures p Right Total Knee Arthroplasty, Cemented(Right) - Geovany Chandler MD Surgeon Geovany Chandler MD Test Lead Application Testing [email or web address] Estimated Blood Loss 50 Findings Consistent with Post-Op Diagnosis
--- NOTE | 2019-12-12 12:49 | Operative Report ---
Post Operative Report Pre & Post Diagnosis Operation Date: 12/12/19 10:40 Pre-Op Diagnosis: Right Knee Degenerative Joint Disease Post-Op Diagnosis: Right Knee Degenerative Joint Disease I identified the patient and participated in the time-out.: Yes Procedure Operation Date: 12/12/19 10:40 Actual Procedures p Right Total Knee Arthroplasty, Cemented(Right) - Geovany Chandler MD Surgeon DONOVAN Chandler MD Cue Worker [email or web address]/[email or web address] Estimated Blood Loss 50 Findings Consistent with Post-Op Diagnosis Specimens see operative report Drains none Complications none Disposition Accompanied Patient To Recovery: Yes Disposition: Recovery Room Indications This 74-year-old female presented to the office with complaints of longstanding intractable right knee pain. She had tried conservative care measures including injection therapy, without improvement. She elected to proceed with surgical intervention after being educated about potential risks and outcomes. Preoperative imaging was obtained. Description of Procedure Patient was given a spinal anesthetic and then taken to the operating room where she was given sedation. She was prepped and draped in the usual sterile fashion. Please see Dr. Chandler's operative report for specifics of the procedure. I was present for the entire case from initial patient positioning through final wound closure. Assistance was provided in tissue retraction, hemostasis, trial implant placement, final implant placement, and final wound closure. Patient was taken to the recovery room in satisfactory condition. I attest to the content of the Intraoperative Record and any orders documented therein. Any exceptions are noted below.
--- NOTE | 2019-12-12 12:51 | Operative Report ---
Post Operative Report Pre & Post Diagnosis Operation Date: 12/12/19 10:40 Pre-Op Diagnosis: Right Knee Degenerative Joint Disease Post-Op Diagnosis: Right Knee Degenerative Joint Disease I identified the patient and participated in the time-out.: Yes Procedure Operation Date: 12/12/19 10:40 Actual Procedures p Right Total Knee Arthroplasty, Cemented(Right) - Geovany Chandler MD Surgeon Geovany Chandler MD Radar Mechanic [email or web address]/[email or web address] Estimated Blood Loss 50 Findings Consistent with Post-Op Diagnosis Specimens R knee bone cuts Complications none Disposition Accompanied Patient To Recovery: Yes Disposition: Recovery Room Description of Procedure Supine, standard prep and drape, tourniquet, time out Right Total Knee Arthroplasty, Cemented Please see Dr Chandler's procedure notes for specific details I was present throughout the case, assisted for wound closure and transferred the patient to PACU in stable condition I attest to the content of the Intraoperative Record and any orders documented therein. Any exceptions are noted below.
--- NOTE | 2019-12-12 13:00 | Operative Report (OR) ---
DATE OF OPERATION: 12/12/2019 SURGEON: Geovany Chandler MD. PLUMBER'S ASSISTANT: Vasile Tobar MD SECOND PLUMBER'S ASSISTANT: Juan Griffith PA-C. PREOPERATIVE DIAGNOSES: Severe valgus deformity and osteoarthritis, right knee. POSTOPERATIVE DIAGNOSES: Severe valgus deformity and osteoarthritis, right knee. OPERATION PERFORMED: Cemented right total knee replacement. PERIOPERATIVE SITUATION: Medically cleared female who has intractable knee pain for decades. At this point in time, wants to proceed with right knee replacement. She understands the risks and consequences, see consent. SUMMARY OF IMPLANTS: Size 3 right posterior cruciate substituting femur, size 2.5 mobile bearing tray, size 3 x 10 posterior cruciate substituting insert matching the femur. Oval domed 3 pegged patella size 38, 2 bags of Palacos G cement. ESTIMATED BLOOD LOSS: 50 mL. CRYSTALLOID: Per anesthesia. PATHOLOGY: Pending on bone. DESCRIPTION OF PROCEDURE: After the patient was appropriately identified, site verified, consent verified and antibiotics confirmed as being given, the right lower extremity was prepped and draped in usual routine fashion. Tourniquet inflated to 300 mmHg for a total of approximately 50 minutes. Midline exposure was utilized. Parapatellar arthrotomy performed. Synovectomy completed. Minimal dissection medially performed. Significant dissection laterally performed to release the tight lateral valgus deformity. Distal femur then entered. Cruciates resected, tibia subluxated, menisci remnants resected, marked defect grade 4 disease lateral compartment throughout. Significant patellofemoral disease. The distal femur was resected 12 mm, proximal tibia was resected 4 mm from the high side. It required 1 revision with additional 2 mm, the extension gap was then excellent. The femur was sized to a 3. Tibia was sized to a 2.5. The femur was cut, anterior and posterior condylar and chamfer cuts were made, and the flexion gap was slightly tight laterally. Once the release was completed, it was excellent. The box cut was then made and the size 3 femur fit well. The tibia was broached and reamed to 2.5 and with a 10 mm spacer, the knee was stable to varus/valgus stress in mid range flexion and full flexion and had excellent tracking of the patella. The patella was resected and it was then left 15-16 mm and a 38 surface button was applied and fit and tracked well. The knee was then injected with Orthomix. Knee irrigated with Betadine Pulsavac and then the permanents were cemented into position after the knee was cleaned one final time, with tibia, femur and patella in that order. After 12 minutes, the tourniquet deflated. After 14 minutes, knee flexed, trial spacer removed, knee irrigated. No cement needed to be removed. Permanent liner seated, knee reduced and closed with #2 Vicryl, 2-0 Vicryl and stainless steel clips. Appropriate dressing including a Jeremias Chan cotton dressing applied. The patient was then transferred to the recovery room in satisfactory condition having tolerated the procedure well. I attest to the content of the Intraoperative Record and any orders documented therein. Any exception s are noted below.
--- NOTE | 2019-12-12 13:10 | XRay Report ---
XR knee RT 1 or 2V routine CLINICAL HISTORY: s/p Right TKA knee replacement COMPARISON: 11/22/2019 DISCUSSION: Anatomic alignment post total right knee arthroplasty. Could contact between prosthetic a nd underlying bone. Expected postoperative soft tissue change IMPRESSION: Anatomic alignment post total right knee arthroplasty. ACT 112: Negative or not required by law. The above report was generated using voice recognition software. It may contain grammatical, syntax or spelling errors. Electronically signed by: Nile Bermeo M.D. 12/12/2019 1:08 PM
--- NOTE | 2019-12-12 13:16 | Anesthesiology Progress Note ---
Date of Service December 12, 2019 Anesthesia Post Procedure Vital Signs Vital Signs: Temp Pulse Pulse Resp BP BP Pulse Ox 12/12/19 13:10 78 13 116/75 95 12/12/19 13:00 69 15 122/65 100 12/12/19 12:49 36.4 C L 80 16 106/61 100 12/12/19 09:02 37.3 C 91 H 20 148/95 H 99 Transfer of Care Handoff Completed per policy Notes Mental Status: alert / awake / arousable Patient Amnestic to Procedure: Yes Nausea / Vomiting: adequately controlled Pain: adequately controlled Airway Patency, RR, SpO2: stable & adequate BP & HR: stable & adequate Hydration State: stable & adequate Neuraxial Anesthesia: was administered and sensory block is resolving Anesthetic Complications: no major complications apparent
--- NOTE | 2019-12-12 13:26 | Progress Notes ---
DATE: 12/12/2019 Postop check status post right total knee replacement. The patient is doing well, has no major issues. I talked to her son, Loy, and informed him that everything went fine. Postop x-rays look excellent. Wound dressing is clean, dry and intact. Neurovascular check is limited by spinal at this point. Continue with postop care pathway.
--- NOTE | 2019-12-12 14:16 | Discharge Summary (DS) ---
CHIEF COMPLAINT: Right knee pain. HISTORY OF PRESENT ILLNESS: The patient has had decades worth of severe bilateral knee pain with valgus deformity, wished to proceed with total knee replacement on the right. Hospital course has been uneventful. Postop x-rays look excellent. PAST MEDICAL HISTORY: Remarkable for anemia, anxiety, autoimmune hepatitis, brain bleed, history of aneurysm, brain aneurysm. PAST SURGICAL HISTORY: sections, breast biopsy, colonoscopy, D and C, gastroesophagoduodenoscopy, history of liver biopsy, brain surgery, wisdom tooth extraction. FAMILY HISTORY: Remarkable for colon and rectal cancer in her sister. Mother, myocardial infarction. Denies any other problems. SOCIAL HISTORY: Reveals that she is . Has a son that will live with her for the next week or so. REVIEW OF SYSTEMS: Reveals no chest pain, shortness of breath, fever, chills, nausea, vomiting or headache. Postop x-rays look excellent. ASSESSMENT: Status post right total knee replacement. Discharge her home tomorrow with services if she does well overnight.
[2019-12-12] MEDS ORDERED: VANCOMYCIN CONSULT ACTIVE PRN (15:07)
[2019-12-12] MEDS ORDERED: MAGNESIUM HYDROXIDE SUSP 30 ML UDC PO PRN (15:07)
[2019-12-12] MEDS ORDERED: ONDANSETRON INJ 2 MG/ML 2 ML VIAL IV PRN (15:07)
[2019-12-12] MEDS ORDERED: METOCLOPRAMIDE HCL INJ 5 MG/ML 2 ML VIAL IV PRN (15:07)
[2019-12-12] MEDS ORDERED: bisacodyL 10 MG SUPP PR PRN (15:07)
[2019-12-12] MEDS ORDERED: SODIUM CHLORIDE 0.9% 1000ML 1,000 ML IV SCH (15:07)
[2019-12-12] MEDS ORDERED: DiphenhydrAMINE HCL 50 MG/ML VIAL IV PRN (15:07)
[2019-12-12] MEDS ORDERED: ALUMINUM/MAGNESIUM SUSP 30 ML UDC PO PRN (15:07)
[2019-12-12] MEDS ORDERED: NALOXONE HCL 0.4 MG/1 ML VIAL/CARP IV PRN (15:07)
[2019-12-12] MEDS: ORTHO WARFARIN NOMOGRAM SCH (15:46)
[2019-12-12] MEDS: ACETAMINOPHEN 500 MG TAB PO SCH ×2 (15:59→21:12)
[2019-12-12] MEDS: KETOROLAC TROMETHAMINE 15 MG/ML VIAL IV SCH ×3 (15:59→21:11)
[2019-12-12] MEDS ORDERED: WARFARIN SOD 5 MG TAB PO ONE (16:00)
[2019-12-12] MEDS: FERROUS GLUCONATE 324 MG TAB PO SCH (18:21)
[2019-12-12] MEDS: ASCORBIC ACID 500 MG TAB PO SCH (18:22)
[2019-12-12] MEDS ORDERED: TRANEXAMIC ACID / 0.7% NACL 1,000 MG/100 ML BAG IV SCH (19:00)
[2019-12-12] MEDS ORDERED: VANCOMYCIN HCL 750 MG in SODIUM CHLORIDE 0.9% 250 ML IV SCH (20:00)
[2019-12-12] MEDS ORDERED: SENNA 8.6 MG TAB PO SCH (21:00)
[2019-12-12] MEDS: DOCUSATE SODIUM 100 MG CAP PO SCH (21:13)
[2019-12-13] MEDS: KETOROLAC TROMETHAMINE 15 MG/ML VIAL IV SCH ×2 (04:30→10:59)
[2019-12-13] MEDS: ACETAMINOPHEN 500 MG TAB PO SCH (05:22)
[2019-12-13 05:36] LABS: Hematocrit (blood only) 35.5 % (37-47); Mean Corpuscular Hemoglobin 28.6 pg (25-34); Mean Corpuscular Hgb Conc 33.8 g/dL (32-36); Mean Corpuscular Volume 84.5 fL (80-100); Mean Platelet Volume 10.7 fL (7.4-10.4); Platelet Count 196 K/uL (130-400); RDW Coefficient of Variation 14.9 % (11.5-14.5); RDW Standard Deviation 46.1 fL (36.4-46.3); White Blood Count 12.71 K/uL (4.8-10.8)
[2019-12-13 05:50] LABS: INR 1.4 (0.9-1.1); Prothrombin Time 14.3 Seconds (9.0-12.0)
[2019-12-13 06:11] LABS: BUN Creatinine Ratio 20.6 (10-20); Calcium 8.4 mg/dl (8.5-10.1); Creatinine Clr Calc Pharmacy 53.1 ml/min; Est GFR (African American) 98.5; Potassium 3.5 mmol/L (3.5-5.1)
--- NOTE | 2019-12-13 08:19 | Progress Notes ---
DATE: 12/13/2019 Did reasonably well overnight. Complains of some pain but is using minimal meds based on all of her allergies. Vital signs are stable. She is afebrile. Neurovascular check femoral sciatic nerve is normal. Can do a straight leg raise. Wound dressing clean, dry and intact. Hematocrit stable. ASSESSMENT: Overall, doing well. Discharge to home today. We removed the Jeremias Chan dressing to go to a standard dressing. Will discharge on Mobic and/or Celebrex, whatever one she prefers and Tylenol around the clock as her pain management due to her sensitivities. Also placed on acid stomach protection based on the need for the anti-inflammatory. Follow up in 2 weeks for staple removal.
--- NOTE | 2019-12-13 08:32 | Orthopedic Progress Note ---
Date of Service December 13, 2019 Assessment & Plan (1) S/P total knee replacement using cement: Patient's Chan dressing was removed today by me. New pressure dressing was applied. JOSHUA hose were applied. PT/OT later this morning. She does not do well on narcotics. Patient will be discharged to home today with home health services. Prescriptions for Celebrex 200 mg daily, tonics 40 mg daily, and Coumadin 2 mg daily have been sent. INR is 31.4 and I will have her use just 2 mg daily. Recheck on Tuesday. Follow-up in the office in 2 weeks as scheduled for staple removal. Call with any other concerns. Admission and Anticipated Discharge Date Admission Date: December 12, 2019 Subjective Patient is seen in her room this morning. She has already eaten breakfast. She has complaints of right knee pain. She states she did not do well overnight. She is nauseated currently. No vomiting. Denies any chest pain, shortness of breath, or abdominal pain. She has not been out walking in the hallway yet. Review of Systems Review of Systems: Unchanged from yesterday Physical Exam Physical Exam: General: Well-developed, well-nourished, elderly female, in no acute distress. Laying on the bed. Alert and oriented. Talkative. Skin: Warm dry with good turgor. No rashes or lesions. Expected postoperative edema at her right knee. Musculoskeletal: Postoperative dressings are dry. Upon removal, she has scant dried drainage on the dressings. No active bleeding. [place] are intact. Wound edges are well approximated. Expected postoperative edema. No ecchymosis yet. Patient is able to perform a straight leg raise. Intact motor function to his toes and ankle. Neurologic: Gross sensation is intact across both lower extremities by soft touch. Peripheral pulses are 2+. Results & Data ([facility]) Vital Signs (Past 12 Hours) Vital Signs Temp Pulse Resp BP BP Pulse Ox 12/13/19 07:48 36.9 C 79 16 108/66 100 12/13/19 04:11 36.4 C L 79 16 104/63 96 12/12/19 23:15 36.3 C L 74 16 98/60 L 97 Laboratory Results H&H today are 12.0 and 35.5. WBCs 12.7. INR is 1.4. BMP is unremarkable.
[2019-12-13] MEDS ORDERED: MULTIVITAMIN TAB PO SCH (09:00)
[2019-12-13] MEDS ORDERED: azaTHIOprine 50 MG TAB PO SCH (09:00)
[2019-12-13] MEDS: ASCORBIC ACID 500 MG TAB PO SCH (09:12)
[2019-12-13] MEDS: FERROUS GLUCONATE 324 MG TAB PO SCH (09:12)
[2019-12-13] MEDS: DOCUSATE SODIUM 100 MG CAP PO SCH (09:13)
[2019-12-13] MEDS: ORTHO WARFARIN NOMOGRAM SCH (11:52)
[2019-12-13] MEDS ORDERED: WARFARIN SOD 2 MG TAB PO SCH (16:00)
== END 2019-12-13 12:48 | disposition home health service (06) ==
LOC: ASU 08:01 → 3E 08:01